=== PATIENT | male | born 1940 | race Caucasian/White ===

== ENCOUNTER → 2017-04-22 | Outpatient (CLI) | payer MEDICARE, OTHER | END | disposition home or self-care (01) | LOC: CVU 09:42 | PROVIDERS: ATTEND Internal Medicine Cardiovascular Disease | DX: I08.0 Rheumatic disorders of both mitral and aortic valves (principal) | CPT/HCPCS: 93306 ==

== ENCOUNTER 2017-05-12 13:39 | Day surgery (SDC) | payer MEDICARE, OTHER ==
[~2017-05-12] VITALS: Ht 185.4 cm; Wt 129.5 kg
[2017-05-12 14:59] VITALS: BP 179/76
[2017-05-12] MEDS ORDERED: SODIUM CHLORIDE 0.9% 1,000 ML IV ONE (15:00)
[2017-05-12] MEDS ORDERED: MECL-76 PO (15:20)
[2017-05-12] MEDS ORDERED: PROPOFOL 10 MG/ML, 20ML ONE (15:20)
[2017-05-12] MEDS ORDERED: FLUT9.9S16 INH (15:20)
[2017-05-12] MEDS ORDERED: PLEASE ENTER HEIGHT AND WEIGHT MC SCH (15:30)
== END 2017-05-12 16:51 ==
LOC: CVU 13:39
PROVIDERS: ATTEND Internal Medicine Cardiovascular Disease
DX: I34.0 Nonrheumatic mitral (valve) insufficiency (principal); I10 Essential (primary) hypertension; E78.5 Hyperlipidemia, unspecified; I35.1 Nonrheumatic aortic (valve) insufficiency; Z88.8 Allergy status to other drugs, medicaments and biological substances; Z87.891 Personal history of nicotine dependence
CPT/HCPCS: 93312; 93325; J2704

== ENCOUNTER 2017-07-28 10:46 | Day surgery (SDC) | payer MEDICARE, OTHER ==
[~2017-07-28] VITALS: Ht 188 cm; Wt 129.1 kg
[~2017-07-28 10:46] MED LIST: FLUT9.9S16 INH; MECL-76 PO
[2017-07-28 11:23] VITALS: BP 143/65
[2017-07-28] MEDS ORDERED: LUTE20CA2 PO (11:58)
[2017-07-28] MEDS ORDERED: ASTR1POW PO (11:58)
[2017-07-28] MEDS ORDERED: MULT-6 PO (11:58)
[2017-07-28] MEDS ORDERED: [UNRECOGNIZED DRUG - OTHER] PO (11:58)
[2017-07-28] MEDS ORDERED: AMLO5TAB2 PO (11:58)
[2017-07-28 12:03] LABS: BASOPHILS # (AUTO) 0.03 x10^3/uL (0-0.1); BASOPHILS % (AUTO) 1 % (0-1); EOSINOPHILS # (AUTO) 0.16 x10^3/uL (0-0.4); EOSINOPHILS % (AUTO) 3 % (1-7); LYMPHOCYTES # (AUTO) 1.81 x10^3/uL (1-3.4); LYMPHOCYTES % (AUTO) 31 % (22-44); MD NO; MEAN CORPUSCULAR HEMOGLOBIN 31.1 pg (27.5-34.5); MEAN CORPUSCULAR HGB CONC 34.1 g/dL (33.2-36.2); MEAN CORPUSCULAR VOLUME 91.1 fL (81-97); MEAN PLATELET VOLUME 8.1 fL (7.4-10.4); MONOCYTES # (AUTO) 0.49 x10^3/uL (0.2-0.8); MONOCYTES % (AUTO) 8 % (2-9); NEUTROPHILS # (AUTO) 3.42 x10^3/uL (1.8-6.8); NEUTROPHILS % (AUTO) 58 % (42-75); PLATELET COUNT 177 x10^3/uL (130-400); RED BLOOD COUNT 4.71 x10^6/uL (4.38-5.82); RED CELL DISTRIBUTION WIDTH 13.4 % (9.4-14.8)
[2017-07-28 12:05] LABS: INTERNATIONAL NORMALIZED RATIO 1.03 (0.93-1.1); PROTHROMBIN TIME 10.7 Seconds (9.6-11.5)
[2017-07-28] MEDS ORDERED: FENTANYL PF 100 MCG/2ML ONE ×2 (12:10→13:08)
[2017-07-28] MEDS ORDERED: BIVALIRUDIN 250 MG ONE ×2 (12:10→13:08)
[2017-07-28] MEDS ORDERED: VERAPAMIL 2.5 MG/ML, 2ML ONE ×2 (12:10→13:08)
[2017-07-28] MEDS ORDERED: MIDAZOLAM 1 MG/ML, 5ML ONE ×2 (12:10→13:08)
[2017-07-28] MEDS ORDERED: TICAGRELOR 90 MG TABLET ONE ×2 (12:10→13:08)
[2017-07-28 12:11] LABS: ANION GAP 8 mmol/L (5-15); CALCIUM 8.6 mg/dL (8.5-10.1); CHLORIDE 107 mmol/L (98-107); CREATININE 0.91 mg/dL (0.7-1.3)
[2017-07-28] MEDS ORDERED: LIDOCAINE 2%, 2ML ONE ×2 (12:11→13:09)
[2017-07-28] MEDS ORDERED: HEPARIN 1,000 UNITS/ML, 10ML ONE ×2 (12:11→13:08)
== END 2017-07-28 16:39 ==
LOC: CACL 10:46
PROVIDERS: ATTEND Internal Medicine Cardiovascular Disease
DX: R07.9 Chest pain, unspecified (principal); E78.2 Mixed hyperlipidemia; I10 Essential (primary) hypertension; I35.1 Nonrheumatic aortic (valve) insufficiency; Z88.1 Allergy status to other antibiotic agents; Z88.8 Allergy status to other drugs, medicaments and biological substances
CPT/HCPCS: 36415; 80048; 85025; 85610; 93458; 99156; C1769; C1894; J1644; J2250; J3010; J3490; Q9967; J0583

== ENCOUNTER 2017-09-09 03:59 | Inpatient (IN) | payer MEDICARE, OTHER ==
[2017-09-08 13:26] LABS: MICROSCOPIC NOT IND
[2017-09-08 13:32] LABS: INTERNATIONAL NORMALIZED RATIO 1.04 (0.93-1.1); PROTHROMBIN TIME 10.7 Seconds (9.6-11.5)
[2017-09-08 13:34] LABS: ALANINE AMINOTRANSFERASE 88 U/L (12-78); ALBUMIN 3.9 g/dL (3.4-5.0); ANION GAP 5 mmol/L (5-15); CALCIUM 8.8 mg/dL (8.5-10.1); CHLORIDE 107 mmol/L (98-107); CREATININE 1.05 mg/dL (0.7-1.3)
[2017-09-08 13:36] LABS: ALKALINE PHOSPHATASE 61 U/L (45-117); BILIRUBIN,TOTAL 0.6 mg/dL (0.2-1.0); TOTAL PROTEIN 7.9 g/dL (6.4-8.2)
[2017-09-08 13:45] LABS: BASOPHILS # (AUTO) 0.03 x10^3/uL (0-0.1); BASOPHILS % (AUTO) 0 % (0-1); EOSINOPHILS # (AUTO) 0.26 x10^3/uL (0-0.4); EOSINOPHILS % (AUTO) 3 % (1-7); LYMPHOCYTES # (AUTO) 2.27 x10^3/uL (1-3.4); LYMPHOCYTES % (AUTO) 29 % (22-44); MD NO; MEAN CORPUSCULAR HEMOGLOBIN 31.8 pg (27.5-34.5); MEAN CORPUSCULAR HGB CONC 34.7 g/dL (33.2-36.2); MEAN CORPUSCULAR VOLUME 91.5 fL (81-97); MEAN PLATELET VOLUME 8.2 fL (7.4-10.4); MONOCYTES # (AUTO) 0.68 x10^3/uL (0.2-0.8); MONOCYTES % (AUTO) 9 % (2-9); NEUTROPHILS # (AUTO) 4.49 x10^3/uL (1.8-6.8); NEUTROPHILS % (AUTO) 58 % (42-75); PLATELET COUNT 202 x10^3/uL (130-400); RED BLOOD COUNT 4.87 x10^6/uL (4.38-5.82); RED CELL DISTRIBUTION WIDTH 13.4 % (9.4-14.8)
[2017-09-08 16:05] LABS: HEMOGLOBIN A1C 5.5 % (4.2-6.3)
[~2017-09-09] VITALS: Ht 186.7 cm; Wt 131.1 kg
[~2017-09-09 03:59] MED LIST changes: +AMLO5TAB2 PO; +ASTR1POW PO; +ASTRAGALUS ROOT PO; +LUTE20CA2 PO; +MULT-6 PO; +[UNRECOGNIZED DRUG - OTHER] PO
[2017-09-09 04:09] VITALS: BP_SYST 154; BP_SYST 160; BP_DIAS 75; BP_DIAS 84
[2017-09-09] MEDS ORDERED: CHLORHEXIDINE 15 ML BOTTLE MM SCH (04:30)
[2017-09-09] MEDS ORDERED: INSULIN LISPRO 100 UNITS/ML, PEN SQ-INSULIN SCH (04:30)
[2017-09-09] MEDS ORDERED: FENTANYL PF 250 MCG/5ML ONE ×5 (06:24→10:03)
[2017-09-09] MEDS ORDERED: MIDAZOLAM 10MG/2 ML ONE (06:24)
[2017-09-09] MEDS ORDERED: AMINOCAPROIC ACID 250 MG/ML, 20ML ONE ×2 (06:26→08:27)
[2017-09-09] MEDS ORDERED: ROCURONIUM 10MG/ML,5ML ONE ×3 (06:26→08:27)
[2017-09-09] MEDS ORDERED: PROPOFOL 10 MG/ML, 20ML ONE (06:26)
[2017-09-09] MEDS ORDERED: EPINEPHRINE 1 MG/ML, 1ML ONE (06:26)
[2017-09-09] MEDS ORDERED: ALBUMIN HUMAN 5% 500 ML IV PRN (07:30)
[2017-09-09] MEDS ORDERED: CEFUROXIME 1.5 GM in SODIUM CHLORIDE 0.9% 50 ML IVPB PRN (07:30)
[2017-09-09] MEDS ORDERED: REGULAR INSULIN 62.5 UNITS in SODIUM CHLORIDE 0.9% 249.375 ML IV PRN ×2 (07:30→10:30)
[2017-09-09] MEDS ORDERED: POTASSIUM CHLORIDE 80 MEQ, SODIUM BICARBONATE 8.4% 10 MEQ, MAGNESIUM SULFATE 0.5 GM, LI... IV PRN (07:30)
[2017-09-09] MEDS ORDERED: VANCOMYCIN IV PRN (07:30)
[2017-09-09] MEDS ORDERED: DEXMEDETOMIDINE 200 MCG in SODIUM CHLORIDE 0.9% 48 ML IV SCH (07:30)
[2017-09-09] MEDS ORDERED: SODIUM CHLORIDE 0.9% IV PRN (07:30)
[2017-09-09] MEDS ORDERED: PHENYLEPHRINE 10 MG in SODIUM CHLORIDE 0.9% 249 ML IV PRN ×2 (07:30→10:30)
[2017-09-09] MEDS ORDERED: MANNITOL PMX 20% 500 ML IVPB PRN (07:30)
[2017-09-09] MEDS ORDERED: EPINEPHRINE 2 MG in SODIUM CHLORIDE 0.9% 248 ML IV SCH (07:30)
[2017-09-09] MEDS ORDERED: CALCIUM CHLORIDE 10%, 10ML SYR ONE (08:27)
[2017-09-09] MEDS ORDERED: PROTAMINE SULFATE 10 MG/ML, 25ML ONE (08:28)
[2017-09-09] MEDS: DOCUSATE 100 MG CAPSULE PO SCH ×2 (09:00→21:38)
[2017-09-09] MEDS ORDERED: MUPIROCIN OINT 2%, 22GM TP SCH (09:00)
[2017-09-09] MEDS: SODIUM CHLORIDE FLUSH 10ML SYR IVF SCH ×3 (09:00→21:00)
[2017-09-09] MEDS ORDERED: FENTANYL PF 100 MCG/2ML IVPush PRN (10:30)
[2017-09-09] MEDS ORDERED: INSULIN REGULAR 100 UNITS/ML, 3ML VIAL IVPush PRN (10:30)
[2017-09-09] MEDS ORDERED: SODIUM BICARB 8.4%, 50ML SYRINGE IV PRN (10:30)
[2017-09-09] MEDS ORDERED: DEXTROSE 50%, 50ML SYRINGE IVPush PRN (10:30)
[2017-09-09] MEDS ORDERED: EPINEPHRINE 2 MG in SODIUM CHLORIDE 0.9% 248 ML IV PRN (10:30)
[2017-09-09] MEDS ORDERED: PROCHLORPERAZINE 5 MG/ML, 2ML IVPush PRN (10:30)
[2017-09-09] MEDS ORDERED: DEXTROSE 4 GM TAB.CHEW PO PRN (10:30)
[2017-09-09] MEDS ORDERED: VASOPRESSIN 50 UNIT in SODIUM CHLORIDE 0.9% 247.5 ML IV PRN (10:30)
[2017-09-09] MEDS: KSCALE TO 4.5 IV SCH ×3 (10:30→22:30)
[2017-09-09] MEDS ORDERED: NITROGLYCERIN/D5W PMX 250 ML IV PRN (10:30)
[2017-09-09] MEDS ORDERED: ACETAMINOPHEN 325 MG TABLET PO PRN (10:30)
[2017-09-09] MEDS ORDERED: SODIUM CHLORIDE 0.9% 1,000 ML IV PRN (10:30)
[2017-09-09] MEDS ORDERED: BISACODYL 10 MG SUPP PR PRN (10:30)
[2017-09-09] MEDS ORDERED: morphine SULFATE 10 MG/ML, 1ML IVPush PRN (10:30)
[2017-09-09] MEDS ORDERED: DOBUTAMINE 250 MG in SODIUM CHLORIDE 0.9% 230 ML IV PRN (10:30)
[2017-09-09] MEDS ORDERED: LACTATED RINGERS 1,000 ML IV PRN (10:30)
[2017-09-09] MEDS ORDERED: MAGNESIUM SULFATE 1 GM in SODIUM CHLORIDE 0.9% 50 ML IVPB SCH (10:30)
[2017-09-09] MEDS ORDERED: ACETAMINOPHEN 650 MG SUPP PR PRN (10:30)
[2017-09-09] MEDS ORDERED: GLUCAGON 1 MG IM PRN (10:30)
[2017-09-09] MEDS ORDERED: DEXMEDETOMIDINE 200 MCG in SODIUM CHLORIDE 0.9% 48 ML IV PRN (10:30)
[2017-09-09] MEDS ORDERED: ALBUMIN HUMAN 25% 50 ML ONE (10:53)
[2017-09-09] MEDS ORDERED: HEPARIN 1,000 UNITS/ML, 30ML ONE (10:53)
[2017-09-09] MEDS ORDERED: LIDOCAINE 2% 100MG/5ML SYRINGE ONE (10:54)
[2017-09-09] MEDS: INSULIN LISPRO 100 UNITS/ML, PEN SQ-INSULIN SCH ×3 (11:00→21:40)
[2017-09-09 11:08] LABS: GLUCOSE BY BLOOD GAS ANALYZER 153 mg/dL (70-110); HEMOGLOBIN BY BLOOD GAS ANALYZ 13.6 g/dL (14.0-18.0); POTASSIUM BY BLOOD GAS ANALYZR 4.3 mmol/L (3.6-5.5)
[2017-09-09 11:18] LABS: INTERNATIONAL NORMALIZED RATIO 1.19 (0.93-1.1); PROTHROMBIN TIME 12.2 Seconds (9.6-11.5)
[2017-09-09] MEDS: MAGNESIUM SULFATE/D5W 100 ML IVPB SCH (11:43)
[2017-09-09] MEDS: HYDROcodone/APAP 10/325 MG TABLET PO PRN ×2 (18:13→22:45)
[2017-09-09] MEDS: CEFUROXIME 1.5 GM in SODIUM CHLORIDE 0.9% 50 ML IVPB SCH (20:02)
[2017-09-09] MEDS ORDERED: VANCOMYCIN 2,000 MG in SODIUM CHLORIDE 0.9% 250 ML IVPB SCH (21:00)
[2017-09-09] MEDS: MUPIROCIN OINT 2%, 22GM NAS SCH (21:39)
[2017-09-10] MEDS: INSULIN LISPRO 100 UNITS/ML, PEN SQ-INSULIN SCH ×7 (01:00→22:26)
[2017-09-10] MEDS: KSCALE TO 4.5 IV SCH (03:30)
[2017-09-10] MEDS: HYDROcodone/APAP 10/325 MG TABLET PO PRN ×4 (03:30→16:13)
[2017-09-10 05:35] LABS: INTERNATIONAL NORMALIZED RATIO 1.12 (0.93-1.1); PROTHROMBIN TIME 11.5 Seconds (9.6-11.5)
[2017-09-10 05:40] LABS: ALBUMIN 3.2 g/dL (3.4-5.0); ANION GAP 11 mmol/L (5-15); CALCIUM 8.1 mg/dL (8.5-10.1); CHLORIDE 110 mmol/L (98-107)
[2017-09-10 05:41] LABS: CREATININE 0.98 mg/dL (0.7-1.3)
[2017-09-10 05:44] LABS: BASOPHILS % (AUTO) 0 % (0-1); EOSINOPHILS # (AUTO) 0.02 x10^3/uL (0-0.4); EOSINOPHILS % (AUTO) 0 % (1-7); LYMPHOCYTES % (AUTO) 8 % (22-44); MD NO; MEAN CORPUSCULAR HEMOGLOBIN 31.9 pg (27.5-34.5); MEAN CORPUSCULAR HGB CONC 34.5 g/dL (33.2-36.2); MEAN CORPUSCULAR VOLUME 92.2 fL (81-97); MEAN PLATELET VOLUME 8.2 fL (7.4-10.4); MONOCYTES # (AUTO) 1.23 x10^3/uL (0.2-0.8); MONOCYTES % (AUTO) 9 % (2-9); NEUTROPHILS # (AUTO) 10.98 x10^3/uL (1.8-6.8); NEUTROPHILS % (AUTO) 83 % (42-75); PLATELET COUNT 138 x10^3/uL (130-400); RED BLOOD COUNT 4.16 x10^6/uL (4.38-5.82); RED CELL DISTRIBUTION WIDTH 13.1 % (9.4-14.8)
[2017-09-10] MEDS ORDERED: MECLIZINE CHEWABLE 25 MG TAB PO PRN (08:00)
[2017-09-10] MEDS: ASPIRIN 81 MG TABLET EC PO SCH (08:15)
[2017-09-10] MEDS: CEFUROXIME 1.5 GM in SODIUM CHLORIDE 0.9% 50 ML IVPB SCH (08:15)
[2017-09-10] MEDS: DOCUSATE 100 MG CAPSULE PO SCH ×2 (08:15→20:48)
[2017-09-10] MEDS ORDERED: AMLODIPINE 5 MG TABLET PO SCH (09:00)
[2017-09-10] MEDS: WARFARIN BIOPROSTHETIC VALVE PROTOCOL 2-3 XX SCH (09:00)
[2017-09-10] MEDS: MAGNESIUM SULFATE/D5W 100 ML IVPB SCH (10:40)
[2017-09-10] MEDS: CHLORHEXIDINE 15 ML BOTTLE MM SCH ×2 (12:18→20:48)
[2017-09-10] MEDS: MUPIROCIN OINT 2%, 22GM NAS SCH ×2 (12:18→20:49)
[2017-09-10] MEDS: SODIUM CHLORIDE FLUSH 10ML SYR IVF SCH ×2 (12:19→20:49)
[2017-09-10] MEDS ORDERED: WARFARIN 5 MG TABLET PO-COUM SCH (18:00)
[2017-09-10] MEDS: KETOROLAC 30 MG/1 ML IVPush PRN (19:46)
[2017-09-11] MEDS: HYDROcodone/APAP 5/325 TABLET PO PRN (02:52)
[2017-09-11] MEDS: KETOROLAC 30 MG/1 ML IVPush PRN (02:52)
[2017-09-11] MEDS: INSULIN LISPRO 100 UNITS/ML, PEN SQ-INSULIN SCH ×4 (03:00→15:00)
[2017-09-11 03:24] LABS: BASOPHILS # (AUTO) 0.05 x10^3/uL (0-0.1); BASOPHILS % (AUTO) 0 % (0-1); EOSINOPHILS # (AUTO) 0.11 x10^3/uL (0-0.4); EOSINOPHILS % (AUTO) 1 % (1-7); LYMPHOCYTES # (AUTO) 1.36 x10^3/uL (1-3.4); LYMPHOCYTES % (AUTO) 10 % (22-44); MD NO; MEAN CORPUSCULAR HEMOGLOBIN 32.2 pg (27.5-34.5); MEAN CORPUSCULAR HGB CONC 35.3 g/dL (33.2-36.2); MEAN CORPUSCULAR VOLUME 91.2 fL (81-97); MEAN PLATELET VOLUME 8.1 fL (7.4-10.4); MONOCYTES # (AUTO) 1.17 x10^3/uL (0.2-0.8); MONOCYTES % (AUTO) 9 % (2-9); NEUTROPHILS # (AUTO) 10.78 x10^3/uL (1.8-6.8); NEUTROPHILS % (AUTO) 80 % (42-75); PLATELET COUNT 118 x10^3/uL (130-400); RED BLOOD COUNT 3.92 x10^6/uL (4.38-5.82); RED CELL DISTRIBUTION WIDTH 13.2 % (9.4-14.8)
[2017-09-11 03:32] LABS: INTERNATIONAL NORMALIZED RATIO 1.06 (0.93-1.1)
[2017-09-11 03:35] LABS: ANION GAP 5 mmol/L (5-15); CALCIUM 7.9 mg/dL (8.5-10.1); CHLORIDE 104 mmol/L (98-107)
[2017-09-11] MEDS: WARFARIN BIOPROSTHETIC VALVE PROTOCOL 2-3 XX SCH (09:00)
[2017-09-11] MEDS: POTASSIUM CHLORIDE 10 MEQ TABLET.ER PO SCH (10:58)
[2017-09-11] MEDS: MUPIROCIN OINT 2%, 22GM NAS SCH ×2 (10:58→21:11)
[2017-09-11] MEDS: AMLODIPINE 5 MG TABLET PO SCH (10:58)
[2017-09-11] MEDS: DOCUSATE 100 MG CAPSULE PO SCH ×2 (10:58→21:11)
[2017-09-11] MEDS: ASPIRIN 81 MG TABLET EC PO SCH (10:58)
[2017-09-11] MEDS: FUROSEMIDE 20 MG/2 ML IV SCH ×2 (10:58→17:18)
[2017-09-11] MEDS: HYDROcodone/APAP 10/325 MG TABLET PO PRN ×3 (11:01→23:19)
[2017-09-11] MEDS: CHLORHEXIDINE 15 ML BOTTLE MM SCH ×2 (11:44→23:20)
[2017-09-11] MEDS: MAGNESIUM SULFATE/D5W 100 ML IVPB SCH (11:44)
[2017-09-11 14:35] VITALS: BP 106/74
[2017-09-11] MEDS ORDERED: WARFARIN 5 MG TABLET PO-COUM SCH (18:00)
[2017-09-11 18:50] VITALS: BP 135/79
[2017-09-11] MEDS ORDERED: INSULIN LISPRO 100 UNITS/ML, PEN SQ-INSULIN SCH (21:00)
[2017-09-11] MEDS: SODIUM CHLORIDE FLUSH 10ML SYR IVF SCH (21:11)
[2017-09-12 01:10] VITALS: BP 121/72
[2017-09-12 04:49] LABS: INTERNATIONAL NORMALIZED RATIO 1.03 (0.93-1.1); PROTHROMBIN TIME 10.7 Seconds (9.6-11.5)
[2017-09-12 04:49] LABS: BASOPHILS # (AUTO) 0.06 x10^3/uL (0-0.1); BASOPHILS % (AUTO) 1 % (0-1); EOSINOPHILS # (AUTO) 0.31 x10^3/uL (0-0.4); EOSINOPHILS % (AUTO) 2 % (1-7); LYMPHOCYTES # (AUTO) 1.94 x10^3/uL (1-3.4); LYMPHOCYTES % (AUTO) 14 % (22-44); MD NO; MEAN CORPUSCULAR HEMOGLOBIN 31.5 pg (27.5-34.5); MEAN CORPUSCULAR HGB CONC 34.2 g/dL (33.2-36.2); MEAN CORPUSCULAR VOLUME 92.1 fL (81-97); MEAN PLATELET VOLUME 8.3 fL (7.4-10.4); MONOCYTES # (AUTO) 1.35 x10^3/uL (0.2-0.8); MONOCYTES % (AUTO) 10 % (2-9); NEUTROPHILS # (AUTO) 9.84 x10^3/uL (1.8-6.8); NEUTROPHILS % (AUTO) 73 % (42-75); PLATELET COUNT 157 x10^3/uL (130-400); RED BLOOD COUNT 4.05 x10^6/uL (4.38-5.82)
[2017-09-12 04:52] LABS: ANION GAP 8 mmol/L (5-15); CALCIUM 7.9 mg/dL (8.5-10.1); CHLORIDE 100 mmol/L (98-107); CREATININE 0.71 mg/dL (0.7-1.3)
[2017-09-12] MEDS: HYDROcodone/APAP 10/325 MG TABLET PO PRN ×2 (06:28→14:08)
[2017-09-12 07:28] VITALS: BP 129/82
[2017-09-12] MEDS: WARFARIN BIOPROSTHETIC VALVE PROTOCOL 2-3 XX SCH (09:00)
[2017-09-12] MEDS: FUROSEMIDE 20 MG/2 ML IV SCH ×2 (09:50→16:00)
[2017-09-12] MEDS: POTASSIUM CHLORIDE 10 MEQ TABLET.ER PO SCH (09:50)
[2017-09-12] MEDS: SODIUM CHLORIDE FLUSH 10ML SYR IVF SCH ×2 (09:51→20:29)
[2017-09-12] MEDS: MUPIROCIN OINT 2%, 22GM NAS SCH ×2 (09:51→20:28)
[2017-09-12] MEDS: AMLODIPINE 5 MG TABLET PO SCH (09:52)
[2017-09-12] MEDS: DOCUSATE 100 MG CAPSULE PO SCH ×2 (09:52→20:28)
[2017-09-12] MEDS: ASPIRIN 81 MG TABLET EC PO SCH (09:52)
[2017-09-12 12:32] VITALS: BP 135/79
[2017-09-12] MEDS: FAMOTIDINE 20 MG TABLET PO SCH ×2 (16:00→20:28)
[2017-09-12] MEDS ORDERED: WARFARIN 7.5 MG TABLET PO-COUM ONE (18:00)
[2017-09-12 19:45] VITALS: BP 177/91
[2017-09-12 20:17] VITALS: BP 133/78
[2017-09-12 22:17] VITALS: BP 127/78
[2017-09-13 00:04] VITALS: BP 147/84
[2017-09-13 03:20] LABS: BASOPHILS # (AUTO) 0.04 x10^3/uL (0-0.1); BASOPHILS % (AUTO) 0 % (0-1); EOSINOPHILS # (AUTO) 0.33 x10^3/uL (0-0.4); EOSINOPHILS % (AUTO) 3 % (1-7); LYMPHOCYTES # (AUTO) 1.74 x10^3/uL (1-3.4); LYMPHOCYTES % (AUTO) 16 % (22-44); MD NO; MEAN CORPUSCULAR HEMOGLOBIN 31.9 pg (27.5-34.5); MEAN CORPUSCULAR HGB CONC 34.4 g/dL (33.2-36.2); MEAN CORPUSCULAR VOLUME 92.6 fL (81-97); MEAN PLATELET VOLUME 7.9 fL (7.4-10.4); MONOCYTES # (AUTO) 1.07 x10^3/uL (0.2-0.8); MONOCYTES % (AUTO) 10 % (2-9); NEUTROPHILS # (AUTO) 7.77 x10^3/uL (1.8-6.8); NEUTROPHILS % (AUTO) 71 % (42-75); PLATELET COUNT 173 x10^3/uL (130-400); RED BLOOD COUNT 3.86 x10^6/uL (4.38-5.82); RED CELL DISTRIBUTION WIDTH 13.3 % (9.4-14.8)
[2017-09-13 03:26] LABS: INTERNATIONAL NORMALIZED RATIO 1.19 (0.93-1.1); PROTHROMBIN TIME 12.3 Seconds (9.6-11.5)
[2017-09-13 03:30] LABS: ANION GAP 7 mmol/L (5-15); CALCIUM 7.7 mg/dL (8.5-10.1); CHLORIDE 102 mmol/L (98-107); CREATININE 0.75 mg/dL (0.7-1.3)
[2017-09-13 07:48] VITALS: BP 129/78
[2017-09-13] MEDS: FUROSEMIDE 20 MG/2 ML IV SCH ×2 (08:41→16:56)
[2017-09-13] MEDS: AMLODIPINE 5 MG TABLET PO SCH (08:46)
[2017-09-13] MEDS: FAMOTIDINE 20 MG TABLET PO SCH ×2 (08:46→21:43)
[2017-09-13] MEDS: DOCUSATE 100 MG CAPSULE PO SCH ×3 (08:46→21:43)
[2017-09-13] MEDS: POTASSIUM CHLORIDE 10 MEQ TABLET.ER PO SCH (08:46)
[2017-09-13] MEDS: ASPIRIN 81 MG TABLET EC PO SCH (08:46)
[2017-09-13] MEDS: MUPIROCIN OINT 2%, 22GM NAS SCH ×2 (08:47→21:43)
[2017-09-13] MEDS: SODIUM CHLORIDE FLUSH 10ML SYR IVF SCH ×2 (08:48→21:42)
[2017-09-13] MEDS: WARFARIN BIOPROSTHETIC VALVE PROTOCOL 2-3 XX SCH (09:16)
[2017-09-13] MEDS: HYDROcodone/APAP 5/325 TABLET PO PRN (09:17)
[2017-09-13 12:44] VITALS: BP 125/75
[2017-09-13] MEDS: MAGNESIUM HYDROXIDE 8%, 30ML UDC PO PRN (16:55)
[2017-09-13] MEDS: METOCLOPRAMIDE 5 MG/ML, 2ML IVPush SCH ×2 (16:59→22:30)
[2017-09-13] MEDS: HYDROcodone/APAP 10/325 MG TABLET PO PRN (17:06)
[2017-09-13] MEDS ORDERED: WARFARIN 7.5 MG TABLET PO-COUM ONE (18:00)
[2017-09-13 19:45] VITALS: BP 139/85
[2017-09-13] MEDS ORDERED: MORPHINE SULFATE 4 MG/ML, 1ML IVPush PRN (22:30)
[2017-09-13] MEDS: FAMOTIDINE 20 MG/2 ML IVPush SCH (22:49)
[2017-09-14] MEDS: METOCLOPRAMIDE 5 MG/ML, 2ML IVPush SCH ×4 (01:20→23:08)
[2017-09-14 02:15] VITALS: BP 146/83
[2017-09-14 05:06] LABS: INTERNATIONAL NORMALIZED RATIO 1.53 (0.93-1.1); PROTHROMBIN TIME 15.8 Seconds (9.6-11.5)
[2017-09-14 05:08] LABS: BASOPHILS # (AUTO) 0.01 x10^3/uL (0-0.1); BASOPHILS % (AUTO) 0 % (0-1); EOSINOPHILS # (AUTO) 0.09 x10^3/uL (0-0.4); EOSINOPHILS % (AUTO) 1 % (1-7); LYMPHOCYTES # (AUTO) 0.47 x10^3/uL (1-3.4); LYMPHOCYTES % (AUTO) 5 % (22-44); MD NO; MEAN CORPUSCULAR HEMOGLOBIN 31.6 pg (27.5-34.5); MEAN CORPUSCULAR HGB CONC 34.4 g/dL (33.2-36.2); MEAN PLATELET VOLUME 7.5 fL (7.4-10.4); MONOCYTES # (AUTO) 0.78 x10^3/uL (0.2-0.8); MONOCYTES % (AUTO) 9 % (2-9); NEUTROPHILS # (AUTO) 7.33 x10^3/uL (1.8-6.8); NEUTROPHILS % (AUTO) 85 % (42-75); PLATELET COUNT 196 x10^3/uL (130-400); RED BLOOD COUNT 4.25 x10^6/uL (4.38-5.82); RED CELL DISTRIBUTION WIDTH 13.1 % (9.4-14.8)
[2017-09-14 05:10] LABS: ANION GAP 9 mmol/L (5-15); CALCIUM 8.6 mg/dL (8.5-10.1); CHLORIDE 99 mmol/L (98-107)
[2017-09-14 05:11] LABS: CREATININE 0.78 mg/dL (0.7-1.3)
[2017-09-14 06:57] VITALS: BP 151/90
[2017-09-14] MEDS ORDERED: hydrALAzine 20 MG/ML, 1ML IV PRN (09:00)
[2017-09-14] MEDS: FAMOTIDINE 20 MG/2 ML IVPush SCH ×2 (10:31→21:43)
[2017-09-14] MEDS: POTASSIUM CHLORIDE 10 MEQ TABLET.ER PO SCH (10:32)
[2017-09-14] MEDS: FUROSEMIDE 20 MG/2 ML IV SCH ×2 (10:32→16:55)
[2017-09-14] MEDS: SODIUM CHLORIDE FLUSH 10ML SYR IVF SCH ×2 (10:32→21:43)
[2017-09-14] MEDS: MUPIROCIN OINT 2%, 22GM NAS SCH (10:33)
[2017-09-14] MEDS: DOCUSATE 100 MG CAPSULE PO SCH ×2 (10:33→20:23)
[2017-09-14] MEDS: AMLODIPINE 5 MG TABLET PO SCH (10:33)
[2017-09-14] MEDS: ASPIRIN 81 MG TABLET EC PO SCH (10:33)
[2017-09-14] MEDS: WARFARIN BIOPROSTHETIC VALVE PROTOCOL 2-3 XX SCH (10:34)
[2017-09-14] MEDS ORDERED: OMNIPAQUE 350 MG/ML, 150 ML BOTTLE ONE (11:15)
[2017-09-14 13:15] VITALS: BP 125/78
[2017-09-14] MEDS ORDERED: WARFARIN 7.5 MG TABLET PO-COUM ONE (18:00)
[2017-09-14 19:02] VITALS: BP 130/83
[2017-09-14 23:48] VITALS: BP 123/84
[2017-09-15 03:29] VITALS: BP 121/78
[2017-09-15] MEDS: METOCLOPRAMIDE 5 MG/ML, 2ML IVPush SCH ×3 (05:25→17:44)
[2017-09-15 05:45] LABS: CHLORIDE 99 mmol/L (98-107)
[2017-09-15 05:50] LABS: ANION GAP 8 mmol/L (5-15); CALCIUM 8.1 mg/dL (8.5-10.1); CREATININE 0.83 mg/dL (0.7-1.3)
[2017-09-15 05:51] LABS: INTERNATIONAL NORMALIZED RATIO 1.56 (0.93-1.1); PROTHROMBIN TIME 16.1 Seconds (9.6-11.5)
[2017-09-15 09:06] VITALS: BP 125/73
[2017-09-15] MEDS: FAMOTIDINE 20 MG/2 ML IVPush SCH ×2 (09:31→22:00)
[2017-09-15] MEDS: FUROSEMIDE 20 MG/2 ML IV SCH ×2 (09:32→17:44)
[2017-09-15] MEDS: AMLODIPINE 5 MG TABLET PO SCH (09:32)
[2017-09-15] MEDS: DOCUSATE 100 MG CAPSULE PO SCH ×2 (09:32→19:53)
[2017-09-15] MEDS: ASPIRIN 81 MG TABLET EC PO SCH (09:32)
[2017-09-15] MEDS: POTASSIUM CHLORIDE 10 MEQ TABLET.ER PO SCH (09:32)
[2017-09-15] MEDS: SODIUM CHLORIDE FLUSH 10ML SYR IVF SCH ×2 (09:33→22:00)
[2017-09-15] MEDS: WARFARIN BIOPROSTHETIC VALVE PROTOCOL 2-3 XX SCH (09:33)
[2017-09-15 13:40] VITALS: BP 129/85
[2017-09-15] MEDS ORDERED: WARFARIN 7.5 MG TABLET PO-COUM ONE (18:00)
[2017-09-15 18:48] VITALS: BP 110/73
[2017-09-16] MEDS: METOCLOPRAMIDE 5 MG/ML, 2ML IVPush SCH ×5 (00:12→23:15)
[2017-09-16 04:58] LABS: MEAN CORPUSCULAR HEMOGLOBIN 31.8 pg (27.5-34.5); MEAN CORPUSCULAR HGB CONC 34.6 g/dL (33.2-36.2); MEAN CORPUSCULAR VOLUME 91.9 fL (81-97); MEAN PLATELET VOLUME 7.6 fL (7.4-10.4); PLATELET COUNT 261 x10^3/uL (130-400); RED BLOOD COUNT 4.13 x10^6/uL (4.38-5.82); RED CELL DISTRIBUTION WIDTH 13.1 % (9.4-14.8)
[2017-09-16 05:06] LABS: ANION GAP 8 mmol/L (5-15); CALCIUM 8.1 mg/dL (8.5-10.1); CHLORIDE 96 mmol/L (98-107)
[2017-09-16 05:35] LABS: INTERNATIONAL NORMALIZED RATIO 1.46 (0.93-1.1); PROTHROMBIN TIME 15.1 Seconds (9.6-11.5)
[2017-09-16 05:37] LABS: MD YES
[2017-09-16 05:39] LABS: BANDS%(MANUAL) 13 % (0-7); EOS#(MANUAL) 0.14 x10^3/uL (0.0-0.4); EOS% (MANUAL) 2 % (1-7); LYMPHS% (MANUAL) 16 % (22-44); MONOS#(MANUAL) 1.04 x10^3/uL (0.3-2.7); MONOS% (MANUAL) 15 % (2-9); SEG#(MANUAL) 3.73 x10^3/uL (1.8-6.8); SEGS% (MANUAL) 54 % (42-75)
[2017-09-16 05:41] LABS: TOXIC GRAN 1+
[2017-09-16 05:43] LABS: <PLATELET ESTIMATE> ADEQUATE; <PLT MORPHOLOGY> NORMAL PLT MORPH; <RBC MORPHOLOGY> NORMAL
[2017-09-16 08:37] VITALS: BP 115/78
[2017-09-16] MEDS: WARFARIN BIOPROSTHETIC VALVE PROTOCOL 2-3 XX SCH (09:00)
[2017-09-16] MEDS: SODIUM CHLORIDE FLUSH 10ML SYR IVF SCH ×2 (09:00→20:37)
[2017-09-16] MEDS: FUROSEMIDE 20 MG/2 ML IV SCH ×2 (09:43→17:43)
[2017-09-16] MEDS: FAMOTIDINE 20 MG/2 ML IVPush SCH ×2 (09:43→20:38)
[2017-09-16] MEDS: ASPIRIN 81 MG TABLET EC PO SCH (09:44)
[2017-09-16] MEDS: POTASSIUM CHLORIDE 10 MEQ TABLET.ER PO SCH (09:44)
[2017-09-16] MEDS: AMLODIPINE 5 MG TABLET PO SCH (09:44)
[2017-09-16] MEDS: DOCUSATE 100 MG CAPSULE PO SCH ×2 (09:44→20:38)
[2017-09-16 14:28] VITALS: BP 115/72
[2017-09-16] MEDS ORDERED: WARFARIN 2 MG TABLET PO-COUM SCH (18:00)
[2017-09-16 20:18] VITALS: BP 131/82
[2017-09-16] MEDS: ONDANSETRON 2MG/ML, 2ML IVPush PRN (20:46)
[2017-09-16] MEDS: SIMETHICONE 125 MG CHEW TAB PO PRN ×2 (23:21→23:23)
[2017-09-17 01:43] VITALS: BP 120/81
[2017-09-17] MEDS: HYDROcodone/APAP 10/325 MG TABLET PO PRN (02:33)
[2017-09-17 05:03] LABS: INTERNATIONAL NORMALIZED RATIO 1.57 (0.93-1.1); PROTHROMBIN TIME 16.2 Seconds (9.6-11.5)
[2017-09-17 05:07] LABS: ANION GAP 9 mmol/L (5-15); CALCIUM 8.2 mg/dL (8.5-10.1); CHLORIDE 95 mmol/L (98-107); MEAN CORPUSCULAR HEMOGLOBIN 31.2 pg (27.5-34.5); MEAN CORPUSCULAR VOLUME 91.9 fL (81-97); MEAN PLATELET VOLUME 7.5 fL (7.4-10.4); PLATELET COUNT 326 x10^3/uL (130-400); RED BLOOD COUNT 4.34 x10^6/uL (4.38-5.82); RED CELL DISTRIBUTION WIDTH 13.4 % (9.4-14.8)
[2017-09-17 05:08] LABS: CREATININE 0.93 mg/dL (0.7-1.3)
[2017-09-17] MEDS: METOCLOPRAMIDE 5 MG/ML, 2ML IVPush SCH ×3 (05:31→21:52)
[2017-09-17 06:02] LABS: MD YES
[2017-09-17 06:04] LABS: BAND#(MANUAL) 2.08 x10^3/uL; BANDS%(MANUAL) 20 % (0-7); EOS#(MANUAL) 0.21 x10^3/uL (0.0-0.4); EOS% (MANUAL) 2 % (1-7); LYMPH#(MANUAL) 2.08 x10^3/uL (1-3.4); LYMPHS% (MANUAL) 20 % (22-44); MONOS#(MANUAL) 1.04 x10^3/uL (0.3-2.7); MONOS% (MANUAL) 10 % (2-9); SEG#(MANUAL) 4.99 x10^3/uL (1.8-6.8); SEGS% (MANUAL) 48 % (42-75)
[2017-09-17 06:05] LABS: <PLATELET ESTIMATE> ADEQUATE; <PLT MORPHOLOGY> NORMAL PLT MORPH; <RBC MORPHOLOGY> NORMAL; TOXIC GRAN 1+
[2017-09-17 06:36] VITALS: BP 118/76
[2017-09-17] MEDS: FUROSEMIDE 20 MG/2 ML IV SCH ×2 (08:00→18:46)
[2017-09-17] MEDS: FAMOTIDINE 20 MG/2 ML IVPush SCH ×2 (08:00→21:52)
[2017-09-17] MEDS: AMLODIPINE 5 MG TABLET PO SCH (08:01)
[2017-09-17] MEDS: DOCUSATE 100 MG CAPSULE PO SCH ×2 (08:01→21:00)
[2017-09-17] MEDS: ASPIRIN 81 MG TABLET EC PO SCH (08:02)
[2017-09-17] MEDS: POTASSIUM CHLORIDE 10 MEQ TABLET.ER PO SCH (08:02)
[2017-09-17] MEDS: SODIUM CHLORIDE FLUSH 10ML SYR IVF SCH ×2 (08:03→21:00)
[2017-09-17] MEDS: ONDANSETRON 2MG/ML, 2ML IVPush PRN (08:42)
[2017-09-17] MEDS: WARFARIN BIOPROSTHETIC VALVE PROTOCOL 2-3 XX SCH (09:00)
[2017-09-17 09:21] LABS: MICROSCOPIC INDICATED
[2017-09-17 09:42] LABS: CULTURE INDICATED? NO
[2017-09-17 13:26] VITALS: BP 122/72
[2017-09-17] MEDS ORDERED: WARFARIN 10 MG TABLET PO-COUM ONE (18:00)
[2017-09-17 18:54] VITALS: BP 130/84
[2017-09-18] VITALS (7 sets, daily range): BP systolic 113–143; BP diastolic 73–88
[2017-09-18] MEDS: METOCLOPRAMIDE 5 MG/ML, 2ML IVPush SCH ×4 (03:17→21:08)
[2017-09-18 05:21] LABS: BASOPHILS # (AUTO) 0.01 x10^3/uL (0-0.1); BASOPHILS % (AUTO) 0 % (0-1); EOSINOPHILS # (AUTO) 0.18 x10^3/uL (0-0.4); EOSINOPHILS % (AUTO) 2 % (1-7); LYMPHOCYTES # (AUTO) 2.08 x10^3/uL (1-3.4); LYMPHOCYTES % (AUTO) 20 % (22-44); MD NO; MEAN CORPUSCULAR VOLUME 91.1 fL (81-97); MEAN PLATELET VOLUME 7.1 fL (7.4-10.4); MONOCYTES # (AUTO) 1.12 x10^3/uL (0.2-0.8); MONOCYTES % (AUTO) 11 % (2-9); NEUTROPHILS # (AUTO) 7.17 x10^3/uL (1.8-6.8); NEUTROPHILS % (AUTO) 68 % (42-75); PLATELET COUNT 315 x10^3/uL (130-400); RED BLOOD COUNT 4.05 x10^6/uL (4.38-5.82); RED CELL DISTRIBUTION WIDTH 13.2 % (9.4-14.8)
[2017-09-18 05:26] LABS: INTERNATIONAL NORMALIZED RATIO 1.74 (0.93-1.1); PROTHROMBIN TIME 17.9 Seconds (9.6-11.5)
[2017-09-18 05:31] LABS: ANION GAP 7 mmol/L (5-15); CALCIUM 7.7 mg/dL (8.5-10.1); CHLORIDE 98 mmol/L (98-107)
[2017-09-18 05:33] LABS: CREATININE 0.97 mg/dL (0.7-1.3)
[2017-09-18] MEDS: DOCUSATE 100 MG CAPSULE PO SCH ×2 (07:41→19:07)
[2017-09-18] MEDS: AMLODIPINE 5 MG TABLET PO SCH (07:42)
[2017-09-18] MEDS: WARFARIN BIOPROSTHETIC VALVE PROTOCOL 2-3 XX SCH (07:42)
[2017-09-18] MEDS: ASPIRIN 81 MG TABLET EC PO SCH (07:42)
[2017-09-18] MEDS: FAMOTIDINE 20 MG/2 ML IVPush SCH ×2 (08:59→21:08)
[2017-09-18] MEDS: SODIUM CHLORIDE FLUSH 10ML SYR IVF SCH ×2 (08:59→21:08)
[2017-09-18] MEDS ORDERED: MIDAZOLAM 1 MG/ML, 2ML ONE (11:03)
[2017-09-18] MEDS ORDERED: FENTANYL PF 100 MCG/2ML ONE ×3 (11:04→12:41)
[2017-09-18] MEDS ORDERED: NEOSTIGMINE 1 MG/ML, 10ML ONE (11:06)
[2017-09-18] MEDS ORDERED: ROCURONIUM 10MG/ML,5ML ONE (11:06)
[2017-09-18] MEDS ORDERED: CEFAZOLIN 1,000 MG ONE (11:06)
[2017-09-18] MEDS ORDERED: DEXAMETHASONE 4 MG/ML, 1ML ONE (11:06)
[2017-09-18] MEDS ORDERED: CEFOTETAN 2 GM ONE (11:06)
[2017-09-18] MEDS ORDERED: ONDANSETRON 2MG/ML, 2ML ONE (11:06)
[2017-09-18] MEDS ORDERED: GLYCOPYRROLATE 0.2MG/1ML, 5ML ONE (11:06)
[2017-09-18] MEDS ORDERED: SUCCINYLCHOLINE 20 MG/ML, 10ML ONE (11:06)
[2017-09-18] MEDS ORDERED: PROMETHAZINE 25 MG/ML, 1ML IV PRN (12:00)
[2017-09-18] MEDS ORDERED: EPHEDRINE 50 MG/ML, 1ML IVPush PRN (12:00)
[2017-09-18] MEDS ORDERED: ACETAMINOPHEN 325 MG TABLET PO PRN (12:00)
[2017-09-18] MEDS ORDERED: MIDAZOLAM 1 MG/ML, 2ML IV PRN (12:00)
[2017-09-18] MEDS ORDERED: hydrALAzine 20 MG/ML, 1ML IV PRN (12:00)
[2017-09-18] MEDS ORDERED: ALBUTEROL SULFATE 2.5 MG/3 ML NPPB PRN (12:00)
[2017-09-18] MEDS ORDERED: ONDANSETRON ODT 8 MG PO PRN (12:00)
[2017-09-18] MEDS ORDERED: MEPERIDINE/PF 25MG/0.5ML IVPush PRN (12:00)
[2017-09-18] MEDS ORDERED: LABETALOL 5MG/ML, 20ML IV PRN (12:00)
[2017-09-18] MEDS ORDERED: HYDROcodone/APAP 7.5-325MG/15ML UDC PO PRN (12:00)
[2017-09-18] MEDS ORDERED: OXYcodone 5 MG/5 ML ORAL.SOL UDC PO PRN (12:00)
[2017-09-18] MEDS ORDERED: HYDROmorphone 2 MG/ML, 1ML ONE (12:41)
[2017-09-18] MEDS: FENTANYL PF 100 MCG/2ML IV PRN ×2 (12:43→12:51)
[2017-09-18] MEDS: HYDROmorphone 1 MG/ML, 1ML IV PRN ×2 (12:45→12:53)
[2017-09-18] MEDS: MORPHINE SULFATE 4 MG/ML, 1ML IVPush PRN ×4 (13:36→21:07)
[2017-09-18] MEDS: PIPERACILLIN/TAZO/PMX 4.5GM 100 ML IV SCH ×2 (14:54→21:12)
[2017-09-18] MEDS ORDERED: WARFARIN 10 MG TABLET PO-COUM ONE (18:00)
[2017-09-19] MEDS: MORPHINE SULFATE 4 MG/ML, 1ML IVPush PRN ×3 (01:25→05:23)
[2017-09-19 02:12] VITALS: BP 141/93
[2017-09-19] MEDS: METOCLOPRAMIDE 5 MG/ML, 2ML IVPush SCH ×4 (03:05→20:23)
[2017-09-19] MEDS: PIPERACILLIN/TAZO/PMX 4.5GM 100 ML IV SCH ×4 (03:05→20:23)
[2017-09-19 04:56] LABS: INTERNATIONAL NORMALIZED RATIO 1.59 (0.93-1.1); PROTHROMBIN TIME 16.4 Seconds (9.6-11.5)
[2017-09-19 05:10] LABS: ANION GAP 11 mmol/L (5-15); CALCIUM 7.8 mg/dL (8.5-10.1); CHLORIDE 99 mmol/L (98-107)
[2017-09-19 05:11] LABS: CREATININE 1.47 mg/dL (0.7-1.3)
[2017-09-19 08:01] VITALS: BP 117/84
[2017-09-19] MEDS: DOCUSATE 100 MG CAPSULE PO SCH ×2 (08:37→20:10)
[2017-09-19] MEDS: FAMOTIDINE 20 MG/2 ML IVPush SCH ×2 (08:42→20:23)
[2017-09-19] MEDS: SODIUM CHLORIDE FLUSH 10ML SYR IVF SCH ×2 (08:42→20:27)
[2017-09-19] MEDS: ASPIRIN 81 MG TABLET EC PO SCH (09:00)
[2017-09-19] MEDS: WARFARIN BIOPROSTHETIC VALVE PROTOCOL 2-3 XX SCH (09:00)
[2017-09-19] MEDS: AMLODIPINE 5 MG TABLET PO SCH (09:00)
[2017-09-19] MEDS: SODIUM CHLORIDE 0.9% 1,000 ML IV SCH (12:21)
[2017-09-19 15:06] VITALS: BP 101/69
[2017-09-19] MEDS ORDERED: WARFARIN 10 MG TABLET PO-COUM SCH (18:00)
[2017-09-19] MEDS ORDERED: WARFARIN 2 MG TABLET PO-COUM SCH (18:00)
[2017-09-19 21:32] VITALS: BP 111/72
[2017-09-20 01:08] VITALS: BP 113/74
[2017-09-20] MEDS: PIPERACILLIN/TAZO/PMX 4.5GM 100 ML IV SCH ×4 (03:17→22:50)
[2017-09-20] MEDS: METOCLOPRAMIDE 5 MG/ML, 2ML IVPush SCH ×4 (03:17→22:51)
[2017-09-20 05:24] LABS: INTERNATIONAL NORMALIZED RATIO 1.24 (0.93-1.1); PROTHROMBIN TIME 12.8 Seconds (9.6-11.5)
[2017-09-20 05:28] LABS: ANION GAP 8 mmol/L (5-15); CHLORIDE 100 mmol/L (98-107); CREATININE 1.22 mg/dL (0.7-1.3)
[2017-09-20 07:50] VITALS: BP 112/71
[2017-09-20] MEDS: FAMOTIDINE 20 MG/2 ML IVPush SCH ×2 (08:34→22:51)
[2017-09-20] MEDS: ASPIRIN 81 MG TABLET EC PO SCH (08:34)
[2017-09-20] MEDS: DOCUSATE 100 MG CAPSULE PO SCH ×2 (08:41→22:51)
[2017-09-20] MEDS: SODIUM CHLORIDE FLUSH 10ML SYR IVF SCH ×2 (08:41→22:51)
[2017-09-20] MEDS: AMLODIPINE 5 MG TABLET PO SCH (08:43)
[2017-09-20] MEDS: SODIUM CHLORIDE 0.9% 1,000 ML IV SCH (08:55)
[2017-09-20] MEDS: WARFARIN BIOPROSTHETIC VALVE PROTOCOL 2-3 XX SCH (09:02)
[2017-09-20 13:07] VITALS: BP 115/82
[2017-09-20] MEDS ORDERED: WARFARIN 10 MG TABLET PO-COUM ONE (18:00)
[2017-09-20] MEDS ORDERED: WARFARIN 5 MG TABLET PO-COUM ONE (18:08)
[2017-09-20 21:05] VITALS: BP 117/73
[2017-09-20] MEDS: MORPHINE SULFATE 4 MG/ML, 1ML IVPush PRN (23:29)
[2017-09-21 01:18] VITALS: BP 119/73
[2017-09-21] MEDS: PIPERACILLIN/TAZO/PMX 4.5GM 100 ML IV SCH ×4 (03:30→21:20)
[2017-09-21] MEDS: METOCLOPRAMIDE 5 MG/ML, 2ML IVPush SCH ×4 (03:30→21:22)
[2017-09-21 05:26] LABS: ANION GAP 8 mmol/L (5-15); CALCIUM 7.8 mg/dL (8.5-10.1); CHLORIDE 98 mmol/L (98-107)
[2017-09-21 05:28] LABS: CREATININE 0.93 mg/dL (0.7-1.3)
[2017-09-21] MEDS: ONDANSETRON 2MG/ML, 2ML IVPush PRN (05:33)
[2017-09-21 05:37] LABS: INTERNATIONAL NORMALIZED RATIO 1.1 (0.93-1.1); PROTHROMBIN TIME 11.4 Seconds (9.6-11.5)
[2017-09-21 07:15] VITALS: BP 113/77
[2017-09-21] MEDS: WARFARIN BIOPROSTHETIC VALVE PROTOCOL 2-3 XX SCH (09:00)
[2017-09-21] MEDS: FAMOTIDINE 20 MG/2 ML IVPush SCH ×2 (09:45→21:22)
[2017-09-21] MEDS: SODIUM CHLORIDE FLUSH 10ML SYR IVF SCH ×2 (09:45→21:00)
[2017-09-21] MEDS: AMLODIPINE 5 MG TABLET PO SCH (09:46)
[2017-09-21] MEDS: ASPIRIN 81 MG TABLET EC PO SCH (09:46)
[2017-09-21] MEDS: DOCUSATE 100 MG CAPSULE PO SCH ×2 (09:46→21:22)
[2017-09-21] MEDS: BISACODYL 5 MG EC TABLET PO PRN (09:49)
[2017-09-21] MEDS ORDERED: POTASSIUM CHLORIDE 20 MEQ TAB.ER.PRT PO ONE (12:00)
[2017-09-21 12:32] VITALS: BP 113/78
[2017-09-21] MEDS ORDERED: WARFARIN 10 MG TABLET PO-COUM ONE (18:00)
[2017-09-21] MEDS ORDERED: WARFARIN 5 MG TABLET PO-COUM ONE (18:00)
[2017-09-21 18:29] VITALS: BP 108/69
[2017-09-21] MEDS: MORPHINE SULFATE 4 MG/ML, 1ML IVPush PRN (21:22)
[2017-09-22 02:00] VITALS: BP 119/68
[2017-09-22] MEDS: PIPERACILLIN/TAZO/PMX 4.5GM 100 ML IV SCH ×4 (02:50→20:10)
[2017-09-22] MEDS: METOCLOPRAMIDE 5 MG/ML, 2ML IVPush SCH ×4 (02:50→20:12)
[2017-09-22 05:27] LABS: BASOPHILS # (AUTO) 0.02 x10^3/uL (0-0.1); BASOPHILS % (AUTO) 0 % (0-1); EOSINOPHILS # (AUTO) 0.27 x10^3/uL (0-0.4); EOSINOPHILS % (AUTO) 3 % (1-7); LYMPHOCYTES # (AUTO) 1.12 x10^3/uL (1-3.4); LYMPHOCYTES % (AUTO) 10 % (22-44); MD NO; MEAN CORPUSCULAR HEMOGLOBIN 31.3 pg (27.5-34.5); MEAN CORPUSCULAR HGB CONC 33.7 g/dL (33.2-36.2); MEAN CORPUSCULAR VOLUME 92.7 fL (81-97); MEAN PLATELET VOLUME 7.3 fL (7.4-10.4); MONOCYTES # (AUTO) 0.72 x10^3/uL (0.2-0.8); MONOCYTES % (AUTO) 7 % (2-9); NEUTROPHILS # (AUTO) 8.86 x10^3/uL (1.8-6.8); NEUTROPHILS % (AUTO) 81 % (42-75); PLATELET COUNT 329 x10^3/uL (130-400); RED CELL DISTRIBUTION WIDTH 13.2 % (9.4-14.8)
[2017-09-22 05:29] LABS: CALCIUM 7.5 mg/dL (8.5-10.1); CHLORIDE 98 mmol/L (98-107)
[2017-09-22 05:33] LABS: ANION GAP 7 mmol/L (5-15); CREATININE 0.84 mg/dL (0.7-1.3)
[2017-09-22 06:41] VITALS: BP 129/83
[2017-09-22] MEDS: ASPIRIN 81 MG TABLET EC PO SCH (08:12)
[2017-09-22] MEDS: AMLODIPINE 5 MG TABLET PO SCH (08:12)
[2017-09-22] MEDS: FAMOTIDINE 20 MG/2 ML IVPush SCH ×2 (08:12→20:11)
[2017-09-22] MEDS: POTASSIUM CHLORIDE 20 MEQ TAB.ER.PRT PO SCH ×2 (08:12→16:55)
[2017-09-22] MEDS: DOCUSATE 100 MG CAPSULE PO SCH ×2 (08:13→20:12)
[2017-09-22] MEDS: WARFARIN BIOPROSTHETIC VALVE PROTOCOL 2-3 XX SCH (08:14)
[2017-09-22] MEDS: SODIUM CHLORIDE FLUSH 10ML SYR IVF SCH ×2 (08:14→20:11)
[2017-09-22] MEDS: MAGNESIUM HYDROXIDE 8%, 30ML UDC PO PRN (08:16)
[2017-09-22 08:28] LABS: INTERNATIONAL NORMALIZED RATIO 1.39 (0.93-1.1); PROTHROMBIN TIME 14.4 Seconds (9.6-11.5)
[2017-09-22] MEDS: BISACODYL 5 MG EC TABLET PO PRN (08:31)
[2017-09-22 13:20] VITALS: BP 111/68
[2017-09-22] MEDS ORDERED: WARFARIN 7.5 MG TABLET PO-COUM ONE (18:00)
[2017-09-22 18:25] VITALS: BP 111/72
[2017-09-22] MEDS: MORPHINE SULFATE 4 MG/ML, 1ML IVPush PRN (22:50)
[2017-09-23 01:29] VITALS: BP 118/78
[2017-09-23] MEDS: PIPERACILLIN/TAZO/PMX 4.5GM 100 ML IV SCH ×3 (03:17→14:29)
[2017-09-23] MEDS: METOCLOPRAMIDE 5 MG/ML, 2ML IVPush SCH ×3 (03:17→14:30)
[2017-09-23 04:39] LABS: BASOPHILS # (AUTO) 0.01 x10^3/uL (0-0.1); BASOPHILS % (AUTO) 0 % (0-1); EOSINOPHILS # (AUTO) 0.21 x10^3/uL (0-0.4); EOSINOPHILS % (AUTO) 2 % (1-7); LYMPHOCYTES # (AUTO) 1.14 x10^3/uL (1-3.4); LYMPHOCYTES % (AUTO) 10 % (22-44); MD NO; MEAN CORPUSCULAR HEMOGLOBIN 31.2 pg (27.5-34.5); MEAN CORPUSCULAR VOLUME 91.8 fL (81-97); MONOCYTES # (AUTO) 0.86 x10^3/uL (0.2-0.8); MONOCYTES % (AUTO) 7 % (2-9); NEUTROPHILS # (AUTO) 9.47 x10^3/uL (1.8-6.8); NEUTROPHILS % (AUTO) 81 % (42-75); PLATELET COUNT 347 x10^3/uL (130-400); RED BLOOD COUNT 3.74 x10^6/uL (4.38-5.82); RED CELL DISTRIBUTION WIDTH 13.5 % (9.4-14.8)
[2017-09-23 04:43] LABS: INTERNATIONAL NORMALIZED RATIO 2.41 (0.93-1.1); PROTHROMBIN TIME 24.6 Seconds (9.6-11.5)
[2017-09-23 07:08] VITALS: BP 114/75
[2017-09-23] MEDS: AMLODIPINE 5 MG TABLET PO SCH (08:58)
[2017-09-23] MEDS: ASPIRIN 81 MG TABLET EC PO SCH (08:58)
[2017-09-23] MEDS: POTASSIUM CHLORIDE 20 MEQ TAB.ER.PRT PO SCH (08:58)
[2017-09-23] MEDS: DOCUSATE 100 MG CAPSULE PO SCH (08:58)
[2017-09-23] MEDS: FAMOTIDINE 20 MG/2 ML IVPush SCH (08:59)
[2017-09-23] MEDS: WARFARIN BIOPROSTHETIC VALVE PROTOCOL 2-3 XX SCH (08:59)
[2017-09-23] MEDS: SODIUM CHLORIDE FLUSH 10ML SYR IVF SCH (08:59)
[2017-09-23 09:05] LABS: ANION GAP 8 mmol/L (5-15); CALCIUM 7.5 mg/dL (8.5-10.1); CHLORIDE 99 mmol/L (98-107); CREATININE 0.89 mg/dL (0.7-1.3)
[2017-09-23] MEDS ORDERED: ONDA4TAB7 PO (09:16)
[2017-09-23] MEDS ORDERED: ASPI-621 PO (09:16)
[2017-09-23] MEDS ORDERED: WARF5TAB PO (09:16)
[2017-09-23] MEDS ORDERED: HYDR-3240 PO (09:16)
[2017-09-23] MEDS ORDERED: DOCU-131 PO (09:16)
[2017-09-23] MEDS ORDERED: Simethicone PO (09:16)
[2017-09-23] MEDS ORDERED: FAMO40TA4 PO (09:16)
[2017-09-23] MEDS ORDERED: BISA5TAB5 PO (09:16)
[2017-09-23] MEDS ORDERED: AMOX1TAB64 PO (09:25)
[2017-09-23 12:22] VITALS: BP 111/71
[2017-09-23] MEDS ORDERED: WARFARIN 5 MG TABLET PO-COUM SCH (18:00)
== END 2017-09-23 16:20 | DRG 219 ==
LOC: 5SO 03:59 → CSU 07:51 → 5SO 09-11 14:16
PROVIDERS: ADMIT Thoracic Surgery (Cardiothoracic Vascular Surgery); ATTEND Thoracic Surgery (Cardiothoracic Vascular Surgery)
PROC: 02QX0ZZ Repair Thoracic Aorta, Ascending/Arch, Open Approach (ICD-10-PCS; 2017-09-09)
PROC: 02RF08Z Replacement of Aortic Valve with Zooplastic Tissue, Open Approach (ICD-10-PCS; 2017-09-09)
PROC: B24BZZ4 Ultrasonography of Heart with Aorta, Transesophageal (ICD-10-PCS; 2017-09-09)
PROC: 5A1221Z Performance of Cardiac Output, Continuous (ICD-10-PCS; 2017-09-09)
PROC: 0DB80ZZ Excision of Small Intestine, Open Approach (ICD-10-PCS; principal; 2017-09-18 10:30)
DX: I08.0 Rheumatic disorders of both mitral and aortic valves (principal); J96.01 Acute respiratory failure with hypoxia; I44.2 Atrioventricular block, complete; E87.1 Hypo-osmolality and hyponatremia; K56.601 Complete intestinal obstruction, unspecified as to cause; I11.0 Hypertensive heart disease with heart failure; I71.2 Thoracic aortic aneurysm, without rupture; I50.9 Heart failure, unspecified; E88.81 Metabolic syndrome and other insulin resistance; H81.09 Meniere's disease, unspecified ear; K76.0 Fatty (change of) liver, not elsewhere classified; E78.5 Hyperlipidemia, unspecified; G47.33 Obstructive sleep apnea (adult) (pediatric); E87.6 Hypokalemia; K43.9 Ventral hernia without obstruction or gangrene; I45.10 Unspecified right bundle-branch block; Z86.79 Personal history of other diseases of the circulatory system; Z95.3 Presence of xenogenic heart valve; Z79.899 Other long term (current) drug therapy; Z79.1 Long term (current) use of non-steroidal anti-inflammatories (NSAID); Z79.2 Long term (current) use of antibiotics
CPT/HCPCS: 36415; 36600; 71045; 71046; 74018; 74177; 74250; 80048; 80053; 81001; 81003; 82040; 82330; 82800; 82803; 82810; 82947; 82962; 83036; 83735; 84132; 84295; 85014; 85018; 85025; 85049; 85347; 85610; 85730; 86850; 86900; 86923; 87081; 88304; 88305; 88307; 93005; 93312; 93321; 93325; 93880; 94002; C1768; J0171; J0690; J0697; J1100; J1170; J1644; J1815; J1885; J2250; J2405; J2543; J2704; J2710; J2720; J3010; J3370; J3475; J3480; J3490; P9045; P9047; Q9967; C1751; C1760; C1762; J0330; J0780; J1940; J2370; J2765; J7030; J7050; P9017; S0028; S0074

== ENCOUNTER → 2017-11-08 | Outpatient (CLI) | payer MEDICARE, OTHER ==
[~2017-11-08] MED LIST changes: +AMOX1TAB64 PO; +ASPI-621 PO; +BISA5TAB5 PO; +DOCU-131 PO; +FAMO40TA4 PO; +HYDR-3240 PO; +ONDA4TAB7 PO; +Simethicone PO; +WARF5TAB PO
[2017-11-08 16:05] LABS: INTERNATIONAL NORMALIZED RATIO 1.5 (0.93-1.1); PROTHROMBIN TIME 15.3 Seconds (9.6-11.5)
== END | disposition home or self-care (01) ==
LOC: CFH 13:31
PROVIDERS: ATTEND Internal Medicine Cardiovascular Disease
DX: I35.1 Nonrheumatic aortic (valve) insufficiency (principal); Z79.01 Long term (current) use of anticoagulants
CPT/HCPCS: 36415; 85610

== ENCOUNTER → 2019-11-02 | Outpatient (CLI) | payer MEDICARE, OTHER ==
[~2019-11-02] MED LIST changes: +AMLO-150 PO; -AMLO5TAB2 PO; -ASPI-621 PO; +ASPI81TA45 PO; -WARF5TAB PO; +WARF5TAB2 PO
== END | disposition home or self-care (01) ==
LOC: CVU 13:48
PROVIDERS: ATTEND Internal Medicine Cardiovascular Disease
DX: I08.3 Combined rheumatic disorders of mitral, aortic and tricuspid valves (principal); I10 Essential (primary) hypertension
CPT/HCPCS: 93306